=== PATIENT | male | born 1940 | race Caucasian/White ===

== ENCOUNTER → 2016-07-18 | Outpatient (CLI) | payer MEDICARE, OTHER | LOC: GMAB 10:53 | PROVIDERS: ATTEND Family Medicine | DX: I10 Essential (primary) hypertension (principal); R53.82 Chronic fatigue, unspecified; Z12.5 Encounter for screening for malignant neoplasm of prostate | CPT/HCPCS: 84403; 84443; G0103 ==

== ENCOUNTER → 2017-01-15 | Outpatient (CLI) | payer MEDICARE, OTHER ==
--- NOTE | 2017-01-15 11:20 | CT ---
EXAM DESCRIPTION: CT ABDOMEN AND PELVIS WITHOUT AND WITH CONTRAST CLINICAL HISTORY: HEMATURIA COMPARISON: None Available. TECHNIQUE: CT of the abdomen and pelvis are performed prior to and during IV bolus administration of 100 mL of Isovue 300. Oral contrast media was not utilized. This exam was performed according to our departmental dose-optimization program, which includes automated exposure control, adjustment of the mA and/or kV according to patient size and/or use of iterative reconstruction technique. FINDINGS: Noncontrast imaging of the abdomen and pelvis demonstrates extensive vascular calcification with mild ectasia of the infrarenal abdominal aorta measuring 2.6 cm in diameter. No further follow-up is recommended. An anatomic variant with a retroaortic left renal vein is incidentally noted. A small normal appendix is evident and a small benign 2 cm cyst left lobe of the liver posteriorly is noted. Extensive coronary calcification is evident and the lung bases demonstrate minimal fibrotic change but are otherwise clear. Intrarenal calculi or hydronephrosis is apparent. Small prostatic calcifications are incidentally noted along with left colonic diverticulosis. Enhanced examination of the abdomen demonstrates a diffuse fatty replaced liver with a 2 cm bilobed as simple appearing otherwise left hepatic cyst. A benign ring calcification in the lateral aspect of the right lobe approximately 10 x 14 mm is present the gallbladder is surgically absent and no ductal dilation is noted with no abnormality of the pancreas noted. A small normal spleen and normal-appearing adrenal glands are evident. The kidneys cortically enhance without worrisome solid mass or significant cystic lesion identified. No hydronephrosis is noted. The retroperitoneum is unremarkable with the aortic ectasia noted. The bladder is partially distended and normal in appearance and left colonic diverticulosis is evident without acute inflammation. No abdominal or pelvic ascites is seen. Small and large bowel caliber is normal and no specific abnormality of the mesentery or retroperitoneum seen. Advanced degenerative changes in the lower lumbar spine with grade 1 spondylolisthesis of L5 on S1 with bilateral L5 pars defects is noted. No bony destructive changes seen. Modest dextroscoliosis of the lower lumbar spine is evident on coronal imaging. IMPRESSION: 1. Essentially normal appearance of the kidneys collecting system and bladder with specific etiology for the patient's hematuria not identified. 2. Fatty replaced liver with benign left lobe hepatic cyst and small benign ringlike calcification lateral right lobe suggesting old injury or infection or possibly a calcified small hemangioma 3. Degenerative changes and spondylolisthesis of the lower lumbar spine. 4. Surgical absence of the gallbladder with normal ductal system. Electronically signed by: Tony Murillo MD 01/15/2017 11:18 AM CDT
== END ==
LOC: CT 07:59
PROVIDERS: ATTEND Family Medicine
DX: R31.21 Asymptomatic microscopic hematuria (principal); K76.89 Other specified diseases of liver

== ENCOUNTER → 2017-07-04 | Outpatient (CLI) | payer MEDICARE, OTHER ==
--- NOTE | 2017-07-04 11:19 | RAD ---
EXAM DESCRIPTION: Hip,Left 2 Views CLINICAL HISTORY: HIP PAIN COMPARISON: None FINDINGS: 2 views of the left hip. No acute fracture, dislocation or aggressive bone lesion is present. Bone mineralization appears normal. No erosions are present. Complete joint space loss of the left hip is present with subchondral sclerosis and cystlike change indicating advanced osteoarthritis. 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 No gross soft tissue findings. Fine vascular calcifications can be seen with metabolic disease. IMPRESSION: Advanced/end-stage osteoarthritis of left hip. Negative for acute osseous pathology. Electronically signed by: Erick Contreras MD 07/04/2017 11:18 AM [facility]
--- NOTE | 2017-07-04 11:21 | RAD ---
EXAM DESCRIPTION: Pelvis CLINICAL HISTORY: HIP PAIN COMPARISON: None FINDINGS: Single frontal view the pelvis. Pelvic ring is intact. SI joints and sacral struts are intact. Advanced severe left greater than right bilateral degenerative hip osteoarthritis is present. Atherosclerotic disease. Metabolic disease. Advanced degenerative changes of the lumbar spine partially seen. IMPRESSION: Advanced/end-stage osteoarthritis of the left greater than right hips. Degenerative changes of the lumbar spine. Negative for acute fracture. Electronically signed by: Ercik Contreras MD 07/04/2017 11:20 AM [facility]
== END | disposition home or self-care (01) ==
LOC: RAD 08:31
PROVIDERS: ATTEND Orthopaedic Surgery
DX: M25.552 Pain in left hip (principal)

== ENCOUNTER → 2017-11-13 | Outpatient (CLI) | payer MEDICARE, OTHER | LOC: GMAB 11:08 | PROVIDERS: ATTEND Family Medicine | DX: I10 Essential (primary) hypertension (principal); Z12.5 Encounter for screening for malignant neoplasm of prostate | CPT/HCPCS: 84443; G0103 ==